=== PATIENT | female | born 1955 | race Caucasian/White ===

== ENCOUNTER → 2017-07-12 14:32 | Outpatient (CLI) | payer OTHER ==
[2016-02-27 16:29] VITALS: BMI 21.3
== END | disposition home or self-care (01) ==
LOC: D.MAMMO 08:15
DX: Z12.31 Encounter for screening mammogram for malignant neoplasm of breast (principal)

== ENCOUNTER → 2018-07-16 07:05 | Outpatient (CLI) | payer OTHER ==
[2016-02-27 16:29] VITALS: BMI 21.3
[~2018-07-16 07:05] MED LIST: ALEVE220 MG PO; COZAAR100 MG PO; NORCO 10-325 TA1 TAB PO; ULTRAM50 MG PO
== END | disposition home or self-care (01) ==
LOC: D.MRI 07:05
DX: M25.561 Pain in right knee (principal)

== ENCOUNTER 2018-07-28 07:20 | Day surgery (SDC) | payer OTHER ==
[2018-07-25 10:07] LABS: HEMATOCRIT 36.3 % (36.0-48.0); HEMOGLOBIN 12.3 g/dL (12-16); MCH 29.2 pg (26.0-34.0); MCHC 33.9 g/dL (31.0-37.0); MCV 86.2 fL (80.0-100.0); MEAN PLATELET VOLUME 9.5 fL (7.4-10.4); RBC 4.21 10x6/uL (4.00-5.40); WBC 5.6 10x3/uL (4.8-10.8)
[~2018-07-28] VITALS: Ht 172.7 cm; Wt 59.0 kg
--- NOTE | ~2018-07-28 | OP ---
PATIENT NAME: TANESHA RAMIREZ MEDICAL RECORD: [id number] LOCATION:[facility] ADMISSION DATE: SURGEON: ALBERTO TAVERAS MD DATE OF OPERATION: 07/28/2018 PREOPERATIVE DIAGNOSIS: Medial meniscus tear of the right knee. POSTOPERATIVE DIAGNOSIS: Medial meniscus tear of the right knee. PROCEDURE: Arthroscopic partial medial meniscectomy. SURGEON: Alberto Taveras MD ANESTHESIA: General. INTRAOPERATIVE COMPLICATIONS: None. SUMMARY OF PATHOLOGIC FINDINGS: The patient had a partial split of the medial root; however, it was not a complete medial root tear. Therefore, medial root fixation was not required. The portion of the medial meniscus was removed. 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 OPERATIVE SUMMARY IN DETAIL: After obtaining the appropriate preoperative orthopedic surgery consent as well as anesthetic consultation, evaluation and clearance the patient was brought to the operating room and placed on the operating table in supine position. After general laryngeal mask administered, tourniquet was placed on the proximal aspect of the right lower extremity. Right lower extremity was then prepped and draped in sterile fashion. The leg was exsanguinated and tourniquet was inflated to 350 mmHg. Routine inferolateral portal was established followed by superior medial portal and inferomedial portal. Diagnostic arthroscopy did show the patient to have the medial meniscus tear as described above. Combination of arthroscopic meniscotomes as well as an arthroscopic resector utilized to debride the meniscus back to stable meniscal elements. Having completed this, the knee was insufflated with 30 cc of 0.25% Marcaine with epinephrine, 80 mg of Depo-Medrol. Arthroscopy portals were closed in routine interrupted fashion using 4-0 Prolene. Sterile dressings were applied. Tourniquet was deflated. The patient was awakened and taken to the recovery room in stable condition. All final needle and sponge counts were correct. TRANSINT:[id number] Voice Confirmation ID: [id number] DOCUMENT ID: [id number] ALBERTO TAVERAS MD at 0843 CC: [id number] DICTATION DATE: 07/31/18 1404 UX INTERACTION DESIGNER: 07/31/18 1418 [facility] 07/28/18 [facility] [address] [place] [address]
[~2018-07-28 07:20] MED LIST changes: -NORCO 10-325 TA1 TAB PO
[2018-07-28 08:00] VITALS: Ht 172.7 cm; Wt 59.0 kg
[2018-07-28] MEDS ORDERED: NORCO 10-325 TA1 TAB PO (11:01)
== END 2018-07-28 13:15 | disposition home or self-care (01) ==
LOC: D.OPS 07:20 → D.PAN 10:45 → D.OPS 10:45 → D.PAN 13:15
PROVIDERS: Anesthesiology
DX: S83.241A Other tear of medial meniscus, current injury, right knee, initial encounter (principal); M94.261 Chondromalacia, right knee; Z01.812 Encounter for preprocedural laboratory examination

== ENCOUNTER → 2018-10-15 22:15 | Outpatient (CLI) | payer OTHER ==
[2018-07-28 08:00] VITALS: BMI 19.8
[~2018-10-15 22:15] MED LIST changes: +NORCO 10-325 TA1 TAB PO
== END | disposition home or self-care (01) ==
LOC: D.MAMMO 09-24 16:15
DX: Z12.31 Encounter for screening mammogram for malignant neoplasm of breast (principal)